=== PATIENT | female | born 1950 | race Two or more races ===

== ENCOUNTER → 2016-11-14 | Outpatient (CLI) | payer MEDICARE, OTHER | END | disposition home or self-care (01) | LOC: CFH 12:26 | PROVIDERS: ATTEND Internal Medicine Cardiovascular Disease | DX: Z13.6 Encounter for screening for cardiovascular disorders (principal); E78.5 Hyperlipidemia, unspecified; I10 Essential (primary) hypertension; E11.9 Type 2 diabetes mellitus without complications; I25.10 Atherosclerotic heart disease of native coronary artery without angina pectoris; I51.7 Cardiomegaly; I37.1 Nonrheumatic pulmonary valve insufficiency; I21.3 ST elevation (STEMI) myocardial infarction of unspecified site; I08.0 Rheumatic disorders of both mitral and aortic valves; Z82.49 Family history of ischemic heart disease and other diseases of the circulatory system | CPT/HCPCS: 75571; 93306 ==

== ENCOUNTER 2016-12-03 09:32 | Observation (INO) | payer MEDICARE, OTHER ==
[2016-12-02 13:29] VITALS: BP 152/81
[2016-12-02 14:26] LABS: ASPARTATE AMINO TRANSFERASE 13 U/L (15-37); BLOOD UREA NITROGEN 46 mg/dL (7-18)
[~2016-12-03] VITALS: Ht 165.1 cm; Wt 64.1 kg
[~2016-12-03 09:32] MED LIST: AMLO5TAB2 PO; ATOR40TA PO; GLIM1TAB2 PO; LISI40TA PO; SITA50TA PO
[2016-12-03] MEDS ORDERED: ESCI5TAB7 PO ×2 (09:56→09:57)
[2016-12-03] MEDS: SODIUM CHLORIDE 0.9% 500 ML IV SCH ×3 (10:19→17:10)
[2016-12-03] MEDS ORDERED: SODIUM CHLORIDE 0.9%, 250ML IVBOLUS ONE (10:30)
[2016-12-03] MEDS ORDERED: FENTANYL PF 100 MCG/2ML ONE (11:37)
[2016-12-03] MEDS ORDERED: LIDOCAINE 2%, 20ML ONE (11:37)
[2016-12-03] MEDS ORDERED: MIDAZOLAM 1 MG/ML, 5ML ONE (11:37)
[2016-12-03] MEDS ORDERED: TICAGRELOR 90 MG TABLET ONE (12:38)
[2016-12-03] MEDS ORDERED: BIVALIRUDIN 250 MG ONE ×2 (12:38→13:23)
[2016-12-03] MEDS ORDERED: ATROPINE SYRINGE 0.1 MG/ML, 10ML ONE (13:50)
[2016-12-03] MEDS ORDERED: ZOLPIDEM 5MG TABLET PO PRN (14:00)
[2016-12-03] MEDS ORDERED: ACETAMINOPHEN 325 MG TABLET PO PRN (14:00)
[2016-12-03] MEDS ORDERED: BISACODYL 5 MG EC TABLET PO PRN (14:00)
[2016-12-03] MEDS ORDERED: ONDANSETRON 2MG/ML, 2ML IVPush PRN (14:00)
[2016-12-03] MEDS ORDERED: ASPI-515 PO (15:02)
[2016-12-03] MEDS ORDERED: CHOL20003 PO (15:02)
[2016-12-03] MEDS: SODIUM CHLORIDE 0.9% 1,000 ML IV SCH (16:51)
[2016-12-03 18:05] VITALS: BP 129/72
[2016-12-03 20:01] VITALS: BP 129/73
[2016-12-03] MEDS: TICAGRELOR 90 MG TABLET PO SCH (20:19)
[2016-12-03] MEDS ORDERED: ATORVASTATIN 20 MG TABLET PO SCH (21:00)
[2016-12-04] MEDS: SODIUM CHLORIDE 0.9% 1,000 ML IV SCH
[2016-12-04 01:37] VITALS: BP 129/64
[2016-12-04 07:02] VITALS: BP 129/66
[2016-12-04] MEDS ORDERED: GLIMEPIRIDE 1 MG TABLET PO SCH (08:00)
[2016-12-04 08:09] LABS: BLOOD UREA NITROGEN 31 mg/dL (7-18); GLUCOSE, FASTING 76 mg/dL (74-106)
[2016-12-04] MEDS ORDERED: TICA90TA PO (08:53)
[2016-12-04] MEDS ORDERED: CITALOPRAM 10 MG TABLET PO SCH (09:00)
[2016-12-04] MEDS ORDERED: AMLODIPINE 5 MG TABLET PO SCH (09:00)
[2016-12-04] MEDS ORDERED: LISINOPRIL 20 MG TABLET PO SCH (09:00)
[2016-12-04] MEDS ORDERED: SITAGLIPTIN 50MG TABLET PO SCH (09:00)
[2016-12-04] MEDS ORDERED: ASPIRIN 81 MG TABLET EC PO SCH (09:00)
[2016-12-04] MEDS: TICAGRELOR 90 MG TABLET PO SCH (10:37)
== END 2016-12-04 11:57 | disposition home or self-care (01) ==
LOC: CACL 09:32 → ORIP 13:48 → 5SO 14:03 → DCLOUNGE 12-04 11:32
PROVIDERS: ADMIT Internal Medicine Cardiovascular Disease; ATTEND Internal Medicine Cardiovascular Disease
DX: I25.10 Atherosclerotic heart disease of native coronary artery without angina pectoris (principal); E11.22 Type 2 diabetes mellitus with diabetic chronic kidney disease; I12.9 Hypertensive chronic kidney disease with stage 1 through stage 4 chronic kidney disease, or unspecified chronic kidney disease; N18.2 Chronic kidney disease, stage 2 (mild); D64.9 Anemia, unspecified; M10.9 Gout, unspecified; E78.5 Hyperlipidemia, unspecified; Z87.891 Personal history of nicotine dependence
CPT/HCPCS: 36415; 71020; 80048; 80053; 82040; 82947; 82962; 85014; 85018; 85025; 85610; 85730; 93005; 93458; 96374; 99156; C1725; C1760; C1769; C1874; C1887; C1894; C9600; G0378; J0461; J0583; J2250; J2405; J3010; J3490; J7030; J7040; J7050; Q9967; 99152; 99157

== ENCOUNTER → 2017-03-19 | Outpatient (CLI) | payer MEDICARE, OTHER ==
[~2017-03-19] MED LIST changes: +ASPI-515 PO; +CHOL2000 PO; +ESCI5TAB7 PO; +TICA90TA PO
[2017-03-19 12:52] LABS: HEMATOCRIT 33.4 % (34.6-47.8); HEMOGLOBIN 11.1 g/dL (11.7-16.4); WHITE BLOOD COUNT 4.9 x10^3/uL (3.4-10)
[2017-03-19 13:14] LABS: ASPARTATE AMINO TRANSFERASE 19 U/L (15-37); BLOOD UREA NITROGEN 41 mg/dL (7-18)
== END | disposition home or self-care (01) ==
LOC: CFH 08:49
PROVIDERS: ATTEND Nurse Practitioner Family
DX: I12.9 Hypertensive chronic kidney disease with stage 1 through stage 4 chronic kidney disease, or unspecified chronic kidney disease (principal); N18.2 Chronic kidney disease, stage 2 (mild); E11.22 Type 2 diabetes mellitus with diabetic chronic kidney disease; E78.00 Pure hypercholesterolemia, unspecified; I25.10 Atherosclerotic heart disease of native coronary artery without angina pectoris
CPT/HCPCS: 36415; 80053; 80061; 83036; 85025

== ENCOUNTER → 2021-01-03 | Outpatient (CLI) | payer MEDICARE, OTHER ==
[~2021-01-03] MED LIST changes: +AMLO-150 PO; -AMLO5TAB2 PO; -ASPI-515 PO; +ASPI-963 PO; -GLIM1TAB2 PO; +GLIM1TAB7 PO; -LISI40TA PO; +LISI40TA9 PO; +REGADENOSON 0.4 MG/5 ML SYRINGE ONE
== END | disposition home or self-care (01) ==
LOC: CFH 11:47
PROVIDERS: ATTEND Internal Medicine Cardiovascular Disease
DX: I25.10 Atherosclerotic heart disease of native coronary artery without angina pectoris (principal); I10 Essential (primary) hypertension
CPT/HCPCS: 78452; 93017; A9502; J2785